=== PATIENT | male | born 1950 | race Caucasian/White ===

== ENCOUNTER 2018-06-10 16:26 | Emergency (ER) | payer MEDICARE, OTHER ==
[2018-06-10] MEDS: HYDROCODONE/APAP (10/325) TAB PO (16:45)
[2018-06-10] MEDS: OLANZAPINE (ODT) 5 MG TAB ODT (17:01)
== END 2018-06-11 10:21 | disposition home or self-care (01) ==
LOC: E/R 16:26
DX: M25.551 Pain in right hip (principal); R40.2142 Coma scale, eyes open, spontaneous, at arrival to emergency department; R40.2362 Coma scale, best motor response, obeys commands, at arrival to emergency department; R40.2252 Coma scale, best verbal response, oriented, at arrival to emergency department; Z87.891 Personal history of nicotine dependence; Z96.641 Presence of right artificial hip joint
CPT/HCPCS: 99283

== ENCOUNTER 2018-06-11 10:21 | Inpatient (IN) | payer MEDICARE, OTHER ==
[2018-06-11 11:09] LABS: ADD MAN DIFF? NO
[2018-06-11 11:11] LABS: BASOPHILS % 0.6 % (0.0-2.0); EOSINOPHILS # 0.2 10^3/ul (0.0-0.5); EOSINOPHILS % 2.8 % (0.0-7.0); HEMATOCRIT 36.4 % (42.0-52.0); LYMPHOCYTES # 1.2 10^3/ul (0.8-2.9); LYMPHOCYTES % 22.8 % (15.0-51.0); MEAN CORPUSCULAR HEMOGLOBIN 27.1 pg (29.0-33.0); MEAN CORPUSCULAR VOLUME 82.4 fl (82.0-101.0); MEAN PLATELET VOLUME 8.9 fl (7.4-10.4); MONOCYTE # 0.7 10^3/ul (0.3-0.9); MONOCYTES % 12.2 % (0.0-11.0); NEUTROPHIL # 3.3 10^3/ul (1.6-7.5); NEUTROPHILS % 61.4 % (39.0-77.0); PLATELET COUNT 191 10^3/UL (140-415); RED BLOOD COUNT 4.42 10^6/ul (4.70-6.10); RED CELL DISTRIBUTION WIDTH 14.7 % (11.5-14.5)
[2018-06-11 11:11] LABS: WHITE BLOOD COUNT 5.3 10^3/ul (4.8-10.8)
[2018-06-11 11:33] LABS: ANION GAP 11 (5-13); BLOOD UREA NITROGEN 13 mg/dl (7-20); CALCIUM 9.8 mg/dl (8.4-10.2); CARBON DIOXIDE 24 mmol/L (21-31); CHLORIDE 107 mmol/L (97-110); CREATININE 0.65 mg/dl (0.61-1.24); Estimated GFR > 60 mL/min (>60); GLUCOSE 117 mg/dl (70-220); POTASSIUM 3.8 mmol/L (3.5-5.1); SODIUM 142 mmol/L (135-144)
[2018-06-11] MEDS: HYDROCODONE/APAP (5/325) TAB PO (14:37)
[2018-06-11] MEDS ORDERED: ACETAMINOPHEN 325 MG TAB PO (17:00)
[2018-06-11] MEDS ORDERED: ONDANSETRON 4 MG INJ IV ×2 (17:00→17:30)
[2018-06-11] MEDS ORDERED: NACL 0.9% 3 ML SYG IV (17:30)
[2018-06-11] MEDS: OXYCODONE/ACETAMINOPHEN (5/325) TAB PO (17:44)
[2018-06-11] MEDS: IBUPROFEN 800 MG TAB PO (19:30)
[2018-06-11] MEDS: APIXABAN 5 MG TABLET PO (20:21)
[2018-06-12 07:36] LABS: ADD MAN DIFF? NO
[2018-06-12] MEDS: OXYCODONE/ACETAMINOPHEN (5/325) TAB PO ×3 (07:42→20:36)
[2018-06-12 07:43] LABS: WHITE BLOOD COUNT 5.8 10^3/ul (4.8-10.8)
[2018-06-12 07:43] LABS: BASOPHILS % 0.5 % (0.0-2.0); EOSINOPHILS # 0.2 10^3/ul (0.0-0.5); EOSINOPHILS % 3.3 % (0.0-7.0); HEMATOCRIT 34.8 % (42.0-52.0); HEMOGLOBIN 11.3 g/dl (14.0-18.0); LYMPHOCYTES # 1.6 10^3/ul (0.8-2.9); LYMPHOCYTES % 27.3 % (15.0-51.0); MEAN CORPUSCULAR HEMOGLOBIN 27.2 pg (29.0-33.0); MEAN CORPUSCULAR HGB CONC 32.5 g/dl (32.0-37.0); MEAN CORPUSCULAR VOLUME 83.7 fl (82.0-101.0); MEAN PLATELET VOLUME 9.3 fl (7.4-10.4); MONOCYTE # 0.7 10^3/ul (0.3-0.9); MONOCYTES % 11.9 % (0.0-11.0); NEUTROPHIL # 3.3 10^3/ul (1.6-7.5); NEUTROPHILS % 56.7 % (39.0-77.0); PLATELET COUNT 175 10^3/UL (140-415); RED BLOOD COUNT 4.16 10^6/ul (4.70-6.10); RED CELL DISTRIBUTION WIDTH 14.8 % (11.5-14.5)
[2018-06-12 07:58] LABS: HEMOGLOBIN A1C 5.3 % (0-5.9)
[2018-06-12 08:00] LABS: ALANINE AMINOTRANSFERASE 23 IU/L (13-69); ALBUMIN 3.8 g/dl (3.3-4.9); ALBUMIN/GLOBULIN RATIO 1.31; ALKALINE PHOSPHATASE 96 IU/L (42-121); ANION GAP 12 (5-13); ASPARTATE AMINO TRANSFERASE 20 IU/L (15-46); BILIRUBIN,INDIRECT 0.5 mg/dl (0-1.1); BILIRUBIN,TOTAL 0.5 mg/dl (0.2-1.3); BLOOD UREA NITROGEN 16 mg/dl (7-20); CALCIUM 9.3 mg/dl (8.4-10.2); CARBON DIOXIDE 26 mmol/L (21-31); CHLORIDE 105 mmol/L (97-110); CREATININE 0.75 mg/dl (0.61-1.24); Estimated GFR > 60 mL/min (>60); GLUCOSE 107 mg/dl (70-220); MAGNESIUM 1.9 mg/dl (1.7-2.5); PHOSPHORUS 4.1 mg/dl (2.5-4.9); POTASSIUM 3.4 mmol/L (3.5-5.1); SODIUM 143 mmol/L (135-144); TOTAL PROTEIN 6.7 g/dl (6.1-8.1)
[2018-06-12] MEDS: APIXABAN 5 MG TABLET PO ×2 (08:37→20:36)
[2018-06-12] MEDS: POTASSIUM CHLORIDE (SR) 20 MEQ TAB PO (11:22)
[2018-06-12] MEDS: LORAZEPAM 2 MG INJ IV (17:54)
[2018-06-13] MEDS: LORAZEPAM 2 MG INJ IV ×3 (00:18→20:25)
[2018-06-13] MEDS: APIXABAN 5 MG TABLET PO ×2 (09:13→20:28)
[2018-06-13] MEDS: LORAZEPAM 1 MG TAB PO ×2 (12:59→19:04)
[2018-06-13] MEDS: OXYCODONE/ACETAMINOPHEN (5/325) TAB PO ×2 (12:59→19:04)
[2018-06-13] MEDS: HALOPERIDOL 5 MG INJ IM (20:27)
[2018-06-13] MEDS: ASPIRIN 325 MG TAB PO (22:26)
[2018-06-14] MEDS: OXYCODONE/ACETAMINOPHEN (5/325) TAB PO ×3 (01:31→12:59)
[2018-06-14] MEDS: LORAZEPAM 1 MG TAB PO ×4 (01:48→18:13)
[2018-06-14] MEDS: APIXABAN 5 MG TABLET PO ×2 (08:51→21:02)
[2018-06-14] MEDS: BUSPIRONE 5 MG TAB PO (21:02)
[2018-06-15] MEDS: OXYCODONE/ACETAMINOPHEN (5/325) TAB PO ×4 (00:16→18:55)
[2018-06-15] MEDS: LORAZEPAM 1 MG TAB PO ×4 (00:16→18:55)
[2018-06-15] MEDS: FLUOXETINE 20 MG CAP PO (08:08)
[2018-06-15] MEDS: APIXABAN 5 MG TABLET PO ×2 (08:08→20:05)
[2018-06-15] MEDS: BUSPIRONE 5 MG TAB PO ×2 (08:08→20:05)
[2018-06-16] MEDS: LORAZEPAM 1 MG TAB PO ×4 (00:58→20:05)
[2018-06-16] MEDS: OXYCODONE/ACETAMINOPHEN (5/325) TAB PO ×4 (00:58→19:14)
[2018-06-16] MEDS: BUSPIRONE 5 MG TAB PO ×2 (09:04→20:05)
[2018-06-16] MEDS: APIXABAN 5 MG TABLET PO ×2 (09:04→20:05)
[2018-06-16] MEDS: FLUOXETINE 20 MG CAP PO (09:04)
[2018-06-17] MEDS: OXYCODONE/ACETAMINOPHEN (5/325) TAB PO ×4 (01:09→22:21)
[2018-06-17] MEDS: LORAZEPAM 1 MG TAB PO ×4 (02:05→21:10)
[2018-06-17] MEDS: BUSPIRONE 5 MG TAB PO ×2 (08:36→21:10)
[2018-06-17] MEDS: APIXABAN 5 MG TABLET PO ×2 (08:36→21:10)
[2018-06-17] MEDS: FLUOXETINE 20 MG CAP PO (08:36)
[2018-06-18] MEDS: LORAZEPAM 1 MG TAB PO (04:33)
[2018-06-18] MEDS: FLUOXETINE 20 MG CAP PO (08:36)
[2018-06-18] MEDS: OXYCODONE/ACETAMINOPHEN (5/325) TAB PO ×3 (08:36→22:00)
[2018-06-18] MEDS: APIXABAN 5 MG TABLET PO ×2 (08:36→21:11)
[2018-06-18] MEDS: BUSPIRONE 5 MG TAB PO ×2 (08:36→21:11)
[2018-06-18] MEDS: LORAZEPAM 2 MG INJ IV ×2 (14:31→21:11)
[2018-06-19] MEDS: OXYCODONE/ACETAMINOPHEN (5/325) TAB PO ×2 (04:18→11:00)
[2018-06-19] MEDS: LORAZEPAM 1 MG TAB PO ×4 (04:18→23:05)
[2018-06-19] MEDS: FLUOXETINE 20 MG CAP PO (09:34)
[2018-06-19] MEDS: BUSPIRONE 5 MG TAB PO ×2 (09:34→21:26)
[2018-06-19] MEDS: APIXABAN 5 MG TABLET PO ×2 (09:34→21:27)
[2018-06-19] MEDS ORDERED: NAPROXEN 500 MG TAB PO (15:30)
[2018-06-19] MEDS: NAPROXEN 250 MG TAB PO (18:05)
[2018-06-20] MEDS: NAPROXEN 250 MG TAB PO ×3 (03:05→20:44)
[2018-06-20] MEDS: LORAZEPAM 1 MG TAB PO ×3 (05:07→17:58)
[2018-06-20] MEDS: BUSPIRONE 5 MG TAB PO ×2 (08:59→20:44)
[2018-06-20] MEDS: APIXABAN 5 MG TABLET PO ×2 (08:59→20:44)
[2018-06-20] MEDS: FLUOXETINE 20 MG CAP PO (08:59)
[2018-06-21] MEDS: LORAZEPAM 1 MG TAB PO ×4 (00:08→20:04)
[2018-06-21] MEDS: traZODone 50 MG TAB PO (02:05)
[2018-06-21] MEDS: NAPROXEN 250 MG TAB PO ×3 (07:16→23:33)
[2018-06-21] MEDS: FLUOXETINE 20 MG CAP PO (09:09)
[2018-06-21] MEDS: APIXABAN 5 MG TABLET PO ×2 (09:09→20:59)
[2018-06-21] MEDS: BUSPIRONE 5 MG TAB PO ×2 (09:09→20:59)
[2018-06-21] MEDS: ACETAMINOPHEN 325 MG TAB PO (11:33)
[2018-06-21] MEDS: DIPHENHYDRAMINE 25 MG CAP PO (23:33)
[2018-06-22] MEDS: LORAZEPAM 1 MG TAB PO ×3 (02:04→14:55)
[2018-06-22] MEDS: ACETAMINOPHEN 325 MG TAB PO (05:29)
[2018-06-22] MEDS: NAPROXEN 250 MG TAB PO ×2 (07:58→15:59)
[2018-06-22] MEDS: FLUOXETINE 20 MG CAP PO (08:03)
[2018-06-22] MEDS: BUSPIRONE 5 MG TAB PO (08:03)
[2018-06-22] MEDS: APIXABAN 5 MG TABLET PO (08:04)
== END 2018-06-22 17:50 | disposition home or self-care (01) | DRG 556 ==
LOC: 5EC 06-15 12:05 → E/R 10:21 → 5EC 06-15 17:00
DX: M25.551 Pain in right hip (principal); I82.431 Acute embolism and thrombosis of right popliteal vein; F33.2 Major depressive disorder, recurrent severe without psychotic features; G89.18 Other acute postprocedural pain; Z59.0 Homelessness; Z86.718 Personal history of other venous thrombosis and embolism; Z79.01 Long term (current) use of anticoagulants; M25.561 Pain in right knee; Z96.651 Presence of right artificial knee joint; Z87.891 Personal history of nicotine dependence; R19.7 Diarrhea, unspecified; F41.8 Other specified anxiety disorders
CPT/HCPCS: 70450; 73510; 80048; 80053; 83036; 83735; 84100; 84443; 85025; 97110; 97116; 97162; 97167; 97530; 97535; 99217; 99283; 99285-25

== ENCOUNTER 2018-07-17 13:55 | Emergency (ER) | payer MEDICARE, OTHER ==
[2018-07-17 16:36] LABS: ADD MAN DIFF? NO
[2018-07-17 16:38] LABS: BASOPHILS % 0.7 % (0.0-2.0); EOSINOPHILS # 0.1 10^3/ul (0.0-0.5); EOSINOPHILS % 1.3 % (0.0-7.0); HEMATOCRIT 41.2 % (42.0-52.0); HEMOGLOBIN 13.4 g/dl (14.0-18.0); LYMPHOCYTES # 1.2 10^3/ul (0.8-2.9); LYMPHOCYTES % 19.1 % (15.0-51.0); MEAN CORPUSCULAR HEMOGLOBIN 27.5 pg (29.0-33.0); MEAN CORPUSCULAR HGB CONC 32.5 g/dl (32.0-37.0); MEAN CORPUSCULAR VOLUME 84.4 fl (82.0-101.0); MONOCYTE # 0.8 10^3/ul (0.3-0.9); NEUTROPHIL # 3.9 10^3/ul (1.6-7.5); NEUTROPHILS % 64.7 % (39.0-77.0); PLATELET COUNT 186 10^3/UL (140-415); RED BLOOD COUNT 4.88 10^6/ul (4.70-6.10)
[2018-07-17 16:56] LABS: ANION GAP 8 (5-13); BLOOD UREA NITROGEN 11 mg/dl (7-20); CALCIUM 9.3 mg/dl (8.4-10.2); CARBON DIOXIDE 29 mmol/L (21-31); CHLORIDE 104 mmol/L (97-110); CREATININE 0.85 mg/dl (0.61-1.24); Estimated GFR > 60 mL/min (>60); GLUCOSE 86 mg/dl (70-220); POTASSIUM 3.7 mmol/L (3.5-5.1); SODIUM 141 mmol/L (135-144)
[2018-07-17] MEDS: SOD CHLORIDE 0.9% 500 ML IV (17:08)
[2018-07-17] MEDS: KETOROLAC 15 MG INJ IV (17:09)
[2018-07-17] MEDS: OXYCODONE/ACETAMINOPHEN (5/325) TAB PO (17:09)
== END 2018-07-17 19:10 | disposition home or self-care (01) ==
LOC: E/R 13:55
DX: S00.03XA Contusion of scalp, initial encounter (principal); F17.210 Nicotine dependence, cigarettes, uncomplicated; M47.812 Spondylosis without myelopathy or radiculopathy, cervical region; W01.10XA Fall on same level from slipping, tripping and stumbling with subsequent striking against unspecified object, initial encounter; Y92.9 Unspecified place or not applicable; Z79.01 Long term (current) use of anticoagulants
CPT/HCPCS: 36415; 70450; 72125; 80048; 85025; 96374; 99285-25